=== PATIENT | male | born 1975 | race American Indian/Alaskan Native ===

== ENCOUNTER 2019-01-04 22:18 | Emergency (ER) | payer OTHER ==
[2019-01-04 22:33] VITALS: BP 122/85
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
== END 2019-01-05 00:34 | disposition home or self-care (01) ==
LOC: ED 22:18
DX: S39.012A Strain of muscle, fascia and tendon of lower back, initial encounter (principal); S16.1XXA Strain of muscle, fascia and tendon at neck level, initial encounter; F12.10 Cannabis abuse, uncomplicated; Z87.891 Personal history of nicotine dependence; V89.2XXA Person injured in unspecified motor-vehicle accident, traffic, initial encounter; Y93.89 Activity, other specified; Y92.410 Unspecified street and highway as the place of occurrence of the external cause; Y99.8 Other external cause status
CPT/HCPCS: 99282